=== PATIENT | male | born 1995 | race Two or more races ===

== ENCOUNTER 2020-03-01 14:03 | Emergency (ER) | payer MEDICAID, OTHER ==
[2020-03-01] MEDS ORDERED: ACETAMINOPHEN 325 MG TABLET PO ONE (15:04)
[2020-03-01] MEDS ORDERED: NORMAL SALINE 1000 ML 1,000 ML IV ONE (15:48)
[2020-03-01] MEDS ORDERED: KETOROLAC TROMETHAMINE INJ/PF 30 MG/1 ML SDV IV ONE (15:48)
[2020-03-01] MEDS ORDERED: IPRATROPIUM/ALBUTEROL 0.5-2.5 MG/3 ML AMPUL NEB ONE (15:49)
--- NOTE | 2020-03-01 16:33 | ER Document Report ---
Entered by SHANICE MOTLEY SCRIBE 03/01/20 1539 Acting as scribe for:CLAUDIA BARROSO MD ED Respiratory Problem - General Chief Complaint: Fever Stated Complaint: SHORTNESS OF BREATH/COUGH/FEVER Time Seen by Provider: 03/01/20 15:21 Mode of Arrival: Ambulatory Information source: Patient Notes: This 25 year old male patient presents to the emergency department today with complaints of a cough which began yesterday, a "slight fever" last night, and shortness of breath. Patient states that his fiance works at the [employer] and she recently was not feeling well for a few days, complaining of a sore throat and a cough but he states that she seemed to get over it quite quickly. Patient states that she was never febrile like he is. Patient reports that he works from home so he has not had much exposure except for his fiancee. Past Medical History - General Information source: Patient - Social History Smoking Status: Never Smoker Cigarette use (# per day): No Frequency of alcohol use: None Drug Abuse: None Lives with: Family Family History: Reviewed & Not Pertinent Patient has homicidal ideation: No Pulmonary Medical History: Reports: Other - Hx Reactive airway disease. Freq uently wheezes with colds Surgical Hx: Negative Review of Systems - Review of Systems Constitutional: See HPI, Fever EENT: See HPI. denies: Throat pain Cardiovascular: No symptoms reported Respiratory: See HPI, Cough, Short of breath Gastrointestinal: denies: Diarrhea, Nausea, Vomiting Genitourinary: No symptoms reported Male Genitourinary: No symptoms reported Musculoskeletal: No symptoms reported Skin: No symptoms reported Hematologic/Lymphatic: No symptoms reported Neurological/Psychological: No symptoms reported -: Yes All other systems reviewed and negative Physical Exam - Vital signs Vitals: Temp Pulse Resp BP Pulse Ox 100.5 F H 130 H 20 145/83 H 98 03/01/20 14:24 03/01/20 14:24 03/01/20 14:24 03/01/20 14:24 03/01/20 14:24 - Notes Notes: Physical Exam: General: Alert, appears well. HEENT: Normocephalic. Atraumatic. PERRL. Extraocular movements intact. Oropharynx clear. Neck: Supple. Non-tender. Respiratory: No respiratory distress. Rhonchi and wheezing with cough. Cardiovascular: Tachycardic into the low 130s, regular rhythm. Abdominal: Normal Inspection. Non-tender. No distension. Normal Bowel Sounds. Back: No gross abnormalities. Extremities: Moves all four extremities. Upper extremities: Normal inspection. Normal ROM. Lower extremities: Normal inspection. No edema. Normal ROM. Neurological: Normal cognition. AAOx4. Normal speech. Psychological: Normal affect. Normal Mood. Skin: Warm. Dry. Normal color. Course - Re-evaluation Re-evalutation: 03/01/20 17:33 After a liter of normal saline and IV Toradol for fever, the patient states his headache is better, he is feeling better. His heart rate is down to 112 from a previous 133. He states his breathing feels better after the breathing treatment. He does have an inhaler at home he can use. - Vital Signs Vital signs: Temp Pulse Resp BP Pulse Ox 100.5 F H 130 H 20 145/83 H 98 03/01/20 14:24 03/01/20 14:24 03/01/20 14:24 03/01/20 14:24 03/01/20 14:24 - Laboratory Result Diagrams: 03/01/20 16:04 03/01/20 16:04 Laboratory results interpreted by me: 03/01/20 03/01/20 16:04 16:04 MCHC 36.2 H [place] % (Auto) 14.9 H Total Protein 8.4 H - Diagnostic Test Radiology reviewed: Image reviewed, Reports reviewed - Chest x-ray does not show acute cardiopulmonary process. Discharge - Discharge Clinical Impression: Viral syndrome, Viral upper respiratory tract infection with cough, Encounter for laboratory testing for COVID-19 virus Condition: Stable Disposition: HOME, SELF-CARE Additional Instructions: Viral Syndrome The physician has diagnosed a viral infection. Viruses not only cause "colds," but can cause many different symptoms including generalized aching, fever, headache, cough, diarrhea, nausea, vomiting, and fatigue. The treatment, for the most part, is simply relief of symptoms. This means that antibiotics are usually not given. Rest, fluids, pain medications and, occasionally, medication for the specific symptoms that are most bothersome will be prescribed. Use good handwashing to avoid passing the virus to others. Shared toys should be cleaned with disinfectant. Clean the toilets, sinks, and counter surfaces in bathrooms. Launder clothing in hot water. Contact the physician if you develop any new or unusual symptoms such as severe headache, stiff neck, high fever, chest pain, productive cough, or shortness of breath. You should be rechecked if you don't see marked improvement within seven to 10 days. Take Tylenol every 4 hours and ibuprofen every 6 hours for fever and headache. Drink plenty of fluids and get plenty of rest. Use your inhaler for wheezing as needed. Try something like the generic version of Delsym DM to help suppress your cough. The COVID testing results should be back in about 3 days. Self quarantine at home until you get the results of the COVID testing. Follow-up with your primary care provider if not improving. RETURN TO THE EMERGENCY ROOM IF ANY NEW OR WORSENING SYMPTOMS. I personally performed the services described in the documentation, reviewed and edited the documentation which was dictated to the scribe in my presence, and it accurately records my words and actions.
[2020-03-01 16:37] LABS: ABSOLUTE LYMPHOCYTES (AUTO) 1.2 10^3/uL (0.5-4.7); ABSOLUTE MONOCYTES (AUTO) 0.8 10^3/uL (0.1-1.4); ABSOLUTE NEUT (AUTO) 3.4 10^3/uL (1.7-8.2); BASOPHILS % (AUTO) 0.9 % (0-2); EOSINOPHILS % (AUTO) 0.6 % (0-6); HEMATOCRIT 42.6 % (37.9-51.0); HEMOGLOBIN 15.4 g/dL (13.5-17.0); LYMPHOCYTES % (AUTO) 22.5 % (13-45); MEAN CORPUSCULAR HEMOGLOBIN 31.5 pg (27.0-33.4); MEAN CORPUSCULAR HGB CONC 36.2 g/dL (32.0-36.0); MEAN CORPUSCULAR VOLUME 87 fl (80-97); MONOCYTES % (AUTO) 14.9 % (3-13); PLATELET COUNT 309 10^3/uL (150-450); RED BLOOD COUNT 4.89 10^6/uL (4.35-5.55); RED CELL DISTRIBUTION WIDTH 12.3 % (11.5-14.0); SEGMENTED NEUTROPHILS % (AUTO) 61.1 % (42-78); TOTAL CELLS COUNTED % (AUTO) 100 %; WHITE BLOOD COUNT 5.5 10^3/uL (4.0-10.5)
--- NOTE | 2020-03-01 16:50 | RADIOLOGY REPORT (SQ) ---
EXAM DESCRIPTION: CHEST SINGLE VIEW IMAGES COMPLETED DATE/TIME: 03/01/2020 3:57 pm REASON FOR STUDY: chest tightness, cough COMPARISON: None. EXAM PARAMETERS: NUMBER OF VIEWS: One view. TECHNIQUE: Single frontal radiographic view of the chest acquired. RADIATION DOSE: NA LIMITATIONS: None. FINDINGS: LUNGS AND PLEURA: No opacities, masses or pneumothorax. No pleural effusion. MEDIASTINUM AND HILAR STRUCTURES: No masses. Contour normal. HEART AND VASCULAR STRUCTURES: Heart normal in size. Normal vasculature. BONES: No acute findings. HARDWARE: None in the chest. OTHER: No other significant finding. IMPRESSION: NO ACUTE RADIOGRAPHIC FINDING IN THE CHEST. TECHNICAL DOCUMENTATION: JOB ID: [id number] 2010 [employer]- All Rights Reserved Reading location - IP/workstation name: [email or web address]
[2020-03-01 16:58] LABS: ALBUMIN 4.9 g/dL (3.5-5.0); ALKALINE PHOSPHATASE 50 U/L (38-126); ANION GAP 11 (5-19); ASPARTATE AMINO TRANSFERASE 26 U/L (17-59); BILIRUBIN,TOTAL 0.8 mg/dL (0.2-1.3); BLOOD UREA NITROGEN 8 mg/dL (7-20); CALCIUM 9.8 mg/dL (8.4-10.2); CARBON DIOXIDE 26 mmol/L (22-30); CHLORIDE 102 mmol/L (98-107); GLUCOSE 93 mg/dL (75-110); POTASSIUM 3.9 mmol/L (3.6-5.0); TOTAL PROTEIN 8.4 g/dL (6.3-8.2)
[2020-03-01 17:40] VITALS: BP 126/79
== END 2020-03-01 17:53 | disposition home or self-care (01) ==
LOC: ER 14:03
DX: U07.1 COVID-19 (principal); J06.9 Acute upper respiratory infection, unspecified; R50.9 Fever, unspecified; R05 Cough; R06.02 Shortness of breath; J02.9 Acute pharyngitis, unspecified
CPT/HCPCS: 94640; 99285; 96361; 96374; 36415; 87040; 85025; 87635; 80053; 71045; J1885; J7030; J7620; C9803

== ENCOUNTER 2020-05-22 05:38 | Emergency (ER) | payer BC, OTHER ==
[2020-05-22] MEDS ORDERED: ONDANSETRON HCL INJ/PF 4 MG/2 ML SDV IV ONE (07:41)
[2020-05-22] MEDS ORDERED: METHYLPREDNISOLONE INJ 125 MG/2 ML SDV IV ONE (07:42)
[2020-05-22 07:59] VITALS: BP 112/59
--- NOTE | 2020-05-22 08:49 | ER Document Report ---
Entered by AYO MURRIETA SCRIBE 05/22/20 0738 Acting as scribe for:YESSI NDIAYE MD ED General - General Chief Complaint: Nausea/Vomiting/Diarrhea Stated Complaint: POSSIBLE ALLERGIC REACTION Primary Care Provider: MARCOS STEINBERG MD [Primary Care Provider] - Follow up as needed Mode of Arrival: Ambulatory Information source: Patient Notes: This 25 year old male patient presents to the ED today with complaints of possible allergic reaction that started around 0400 this morning. Patient states that he ate [employer] around 2000 last night and felt fine when he went to bed. He states that at 0400, he woke up and noticed hives to his bilateral upper extremities and trunk. He also reports nausea and vomiting. He notes that he took Jesu and Singulair prior to arrival. He mentions that after he vomited en route to the ED he felt better, but still decided to come to the ED for evaluation. He also mentions that he tested positive for COVID in 02/2020. Denies fever, cough, shortness of breath, insect bite, or known COVID exposure. - Related Data Allergies/Adverse Reactions: No Known Allergies Allergy (Verified 05/22/20 06:04) Home Medications: cingular. jesu. albuterol. flonase Past Medical History - General Information source: Patient - Social History Smoking Status: Never Smoker Cigarette use (# per day): No Chew tobacco use (# tins/day): No Smoking Education Provided: No Frequency of alcohol use: Occasional Drug Abuse: None Family History: Reviewed & Not Pertinent Patient has suicidal ideation: No Patient has homicidal ideation: No Pulmonary Medical History: Reports: Hx Asthma Review of Systems - Review of Systems Constitutional: See HPI. denies: Fever EENT: No symptoms reported Cardiovascular: No symptoms reported Respiratory: See HPI. denies: Cough Gastrointestinal: See HPI, Nausea, Vomiting Genitourinary: No symptoms reported Male Genitourinary: No symptoms reported Musculoskeletal: No symptoms reported Skin: See HPI, Rash. denies: Other - Insect bite Hematologic/Lymphatic: No symptoms reported Neurological/Psychological: No symptoms reported -: Yes All other systems reviewed and negative Physical Exam - Vital signs Vitals: Temp Pulse Resp BP Pulse Ox 98.0 F 95 16 112/59 L 98 05/22/20 07:58 05/22/20 07:58 05/22/20 07:58 05/22/20 07:58 05/22/20 07:58 Interpretation: Normal - General General appearance: Appears well, Alert In distress: None - HEENT Head: Normocephalic, Atraumatic Eyes: Normal Pupils: PERRL - Respiratory Respiratory status: No respiratory distress Chest status: Nontender Breath sounds: Normal Chest palpation: Normal - Cardiovascular Rhythm: Regular Heart sounds: Normal auscultation, S1 appreciated, S2 appreciated Murmur: No Friction rub: No Gallop: None auscultated - Abdominal Inspection: Normal Distension: No distension Bowel sounds: Normal Tenderness: Nontender - Abdomen soft Organomegaly: No organomegaly - Back Back: Normal, Nontender - Extremities General upper extremity: Normal inspection General lower extremity: Normal inspection. No: Edema - Neurological Neuro grossly intact: Yes Orientation: AAOx4 [place] Coma Scale Eye Opening: Spontaneous [place] Coma Scale Verbal: Oriented Suze Coma Scale Motor: Obeys Commands Suze Coma Scale Total: 15 - Psychological Associated symptoms: Normal affect, Normal mood - Skin Skin Temperature: Warm Skin Moisture: Dry Skin Color: Normal Skin irregularity: negative: Rash Course - Vital Signs Vital signs: Temp Pulse Resp BP Pulse Ox 98.0 F 95 16 112/59 L 98 05/22/20 07:58 05/22/20 07:58 05/22/20 07:58 05/22/20 07:58 05/22/20 07:58 Discharge - Discharge Clinical Impression: Urticarial rash Allergic reaction Qualifiers: Encounter type: initial encounter Qualified Code(s): T78.40XA - Allergy, unspecified, initial encounter Condition: Stable Disposition: HOME, SELF-CARE Instructions: Antinausea Medication ([facility]) Additional Instructions: Allergic Contact Dermatitis You have a local allergic reaction, called contact dermatitis. This an allergy to something in contact with your skin. Poison natasha, jewelry, soaps, perfumes, and chemicals are common causes. Typically, an itchy rash develops a few days after the exposure. If the reaction is severe, blisters may develop. Two to three weeks may be required for healing. Generally, treatment consists of: (1) a thorough washing with soap to remove the offending substance, (2) application of a cortisone cream, and (3) antihistamines for itching. If the reaction is particularly severe, further measures may be required. These can include soaking in epsom salts or Temo's solution, and oral cortisone medications. Call the doctor if the rash worsens despite treatment, or if signs of infection occur such as spreading redness, red streaks, swollen glands, swelling, or fever. You may have had an allergic reaction to the food he last ate at [facility] you mention it occurred about 8:00 last p.m. As you mention there is been no evidence of any insect bite or any other known offending agent to cause you to become allergic early this morning. With that said we will put you on steroid medications and asked that you take your usual Jesu and Singulair tablets for your allergies. You will be placed on a Medrol Dosepak to taper off over the next 6 days. Prescriptions: Methylprednisolone [Medrol Dosepack (4 mg/Tab) 21 Tab/Dosepak] 4 mg PO ASDIR PRN #[id number] PRN Reason: Forms: Return to Work Referrals: MARCOS STEINBERG MD [Primary Care Provider] - Follow up as needed I personally performed the services described in the documentation, reviewed and edited the documentation which was dictated to the scribe in my presence, and it accurately records my words and actions.
== END 2020-05-22 08:14 | disposition home or self-care (01) ==
LOC: ER 05:38
DX: L50.0 Allergic urticaria (principal); R11.2 Nausea with vomiting, unspecified; R19.7 Diarrhea, unspecified
CPT/HCPCS: 99284; 96374; 96375; J2930; J2405